=== PATIENT | female | born 1945 | race Caucasian/White ===

== ENCOUNTER → 2017-10-25 09:55 | Outpatient (CLI) | payer MEDICARE, OTHER, SELFPAY ==
[2017-10-25 11:41] LABS: Alanine Aminotransferase 26 IU/L (9-52); Albumin 4.7 g/dL (3.5-5.0); Albumin Globulin Ratio 1.2 (1.0-2.8); Alkaline Phosphatase 76 U/L (38-126); Aspartate Aminotransferase 26 IU/L (14-36); Bilirubin Total 0.6 mg/dL (0.2-1.3); Blood Urea Nitrogen 16 mg/dL (7-17); Calcium 10.2 mg/dL (8.4-10.2); Carbon Dioxide 33 mmol/L (22-32); Chloride 96 mmol/L (98-107); Cholesterol 205 mg/dL (140-199); Creatinine Urine Random 67.5 mg/dL; Estimated Glomerular Filt Rate > 60.0 mL/min (>60); Globulin 3.8 g/dL (1.7-4.1); Glucose 194 mg/dL (80-110); HDL Cholesterol 43 mg/dL (40-60); HEMOLYSIS < 15 (0-50); LDL Cholesterol Calculated 100 mg/dL (<100); Potassium 3.4 mmol/L (3.4-5.1); Sodium 139 mmol/L (137-145); Total Protein 8.5 g/dL (6.3-8.2); Triglycerides 308 mg/dL (35-150)
[2017-10-25 11:46] LABS: Microalbumi Creatinin Ratio Ur 63.7 ug/mg CR (<30); Microalbumin Urine Random 4.3 mg/dL (0-1.6)
[2017-10-25 11:48] LABS: Hemoglobin A1C% w Est Avg Glu 7.7 % (4.0-6.0)
== END ==
PROVIDERS: PCP Internal Medicine; Visit Provider Internal Medicine
DX: E11.65 Type 2 diabetes mellitus with hyperglycemia (principal); E11.69 Type 2 diabetes mellitus with other specified complication; E66.9 Obesity, unspecified; E78.5 Hyperlipidemia, unspecified; I10 Essential (primary) hypertension
CPT/HCPCS: 36415; 80053; 80061; 82043; 82570; 83036

== ENCOUNTER → 2018-07-19 06:48 | Outpatient (CLI) | payer MEDICARE, OTHER, SELFPAY ==
--- NOTE | 2018-07-19 | DI.ECHO.S_ITS ---
[place] [facility]---------+ [facility] +---------+ : : [address] : : : : [id number] : : : : Phone: [phone]+ Echocardiogram Report + + :Name: SHANIA RAMÍREZ Study Date: 07/19/2018 Height: 63 in : :[facility] Exam Location: [facility] Weight: 185 lb : : Gender: Female BSA: 1.9 m2 : :: 1945 Age: 73 yrs BP: 160/100 mmHg: :Reason For Study: Cardiomegaly : :Ordering Physician: Rosalie Howard Performed By: Anastasiia Page : + + Interpretation Summary The left ventricle is mildly dilated. Left ventricular systolic function is moderately reduced. The ejection fraction is estimated to be 35-40%. There is moderate to severe global hypokinesis of the left ventricle. There is a significant dyssynchronous contraction pattern, consistent with a conduction abnormality. The right ventricle is normal in size and function. The right ventricular systolic pressure is estimated to be at least 31 mmHg based on an estimated right atrial pressure of 15 mm Hg. The left atrium is mildly dilated. Right atrial size is normal. There is no significant valvular heart disease. The aortic root is normal size. Procedure: A two-dimensional transthoracic echocardiogram with color flow and Doppler was performed. The study quality was technically adequate. There is no prior echocardiogram noted for this patient. The patient was in atrial fibrillation with heart rates between 68-98 bpm during the exam. The patient had a bundle branch block rhythm during the exam. Left Ventricle: The left ventricle is mildly dilated. There is normal left ventricular wall thickness. There is no thrombus. Left ventricular systolic function is moderately reduced. The ejection fraction is estimated to be 35- 40%. There is moderate to severe global hypokinesis of the left ventricle. There is a significant dyssynchronous contraction pattern, consistent with a conduction abnormality. Diastolic function could not be accurately assessed due to atrial fibrillation. Right Ventricle: The right ventricle is normal in size and function. Atria: The left atrium is mildly dilated. Right atrial size is normal. There is no Doppler evidence for an interatrial shunt. Mitral Valve: The mitral valve leaflets appear mildly thickened, but open well. There is trace mitral regurgitation. Aortic Valve: The aortic valve is trileaflet. The aortic valve is slightly calcified. There is trace aortic regurgitation. Tricuspid Valve: The tricuspid valve is normal in structure and function. There is trace tricuspid regurgitation. The right ventricular systolic pressure is estimated to be at least 31 mmHg based on an estimated right atrial pressure of 15 mm Hg. Pulmonic Valve: The pulmonic valve is not well visualized. There is no pulmonic valvular regurgitation. There is no significant valvular heart disease. Great Vessels: The aortic root is normal size. The ascending aorta is normal in size. The pulmonary artery is not well visualized, but is probably normal size. The IVC is dilated (diameter is greater than 2.1 cm) and it collapses less than 50% with a sniff. This suggests a high right atrial pressure of 15 mm Hg. Pericardium/ Pleura There is no pericardial effusion. There is no pleural effusion. MMode/2D Measurements & Calculations LVIDd: 5.4 cm LVOT diam: 2.2 cm LVIDs: 4.1 cm Ao root diam: 3.2 cm FS: 23.4 % asc Aorta Diam: 3.2 cm EPSS: 1.2 cm IVSd: 0.86 cm LVPWd: 0.86 cm LV dominguez. diameter/BSA (cm/m^2): 2.9 LV sys. diameter/BSA (cm/m^2): 2.2 LA A2 area: 23.9 cm2 RA long axis: 4.0 cm LA A4 area: 19.7 cm2 RA area: 12.1 cm2 LA length (vol): 5.5 cm RA vol: 31.2 ml LA vol: 72.7 ml RA : 16.7 ml/m2 LA vol index: 38.8 ml/m2 IVC diam: 2.1 cm RVD1 (basal): 3.1 cm RVD2 (mid): 3.1 cm Doppler Measurements & Calculations Ao V2 max: 124.3 cm/sec LVOT Max Julio: 63.2 cm/sec Ao V2 mean: 87.0 cm/sec LV V1 max P.6 mmHg Ao max P.2 mmHg LV V1 VTI: 12.5 cm Ao mean P.3 mmHg ASHOK(I,D): 2.0 cm2 Ao V2 VTI: 24.4 cm ASHOK(V,D): 1.9 cm2 sev ratio: 0.51 ASHOK indexed to BSA (cm^2/m^2): 1.0 MV E max julio: 119.6 cm/sec TR max julio: 199.1 cm/sec MV P1/2t: 32.1 msec TR max P.9 mmHg MVA(VTI): 1.9 cm2 PA V2 max: 69.4 cm/sec PA V2 mean: 49.6 cm/sec PA mean P.1 mmHg PA Accel Time: 0.10 sec MV V2 mean: 63.9 cm/sec MV P1/2t max julio: 120.4 cm/sec MV mean P.3 mmHg MVA(P1/2t): 6.9 cm2 MV V2 VTI: 25.0 cm SV(LVOT): 47.8 ml Reading Physician:02:29 PM
== END ==
PROVIDERS: PCP Internal Medicine; Visit Provider Internal Medicine
DX: I51.7 Cardiomegaly (principal); R94.31 Abnormal electrocardiogram [ECG] [EKG]; I10 Essential (primary) hypertension; G51.0 Bell's palsy
CPT/HCPCS: 93306

== ENCOUNTER → 2018-08-26 07:42 | Outpatient (CLI) | payer MEDICARE, OTHER, SELFPAY ==
--- NOTE | 2018-08-26 | DI.NM.S_ITS ---
PROCEDURE: NM WING PERF SPECT R&S PHARM Rest and pharmacological stress myocardial perfusion SPECT with gated imaging and ejection fraction RADIOPHARMACEUTICAL: 25.7 mCi Tc-99m tetrafosmin IV at rest and 25.8 mCi Tc-99m tetrafosmin IV at peak effect of pharmacological stress. [id number] was performed. INDICATIONS: Left bundle-branch block, unspecified TECHNIQUE: Radiopharmaceutical was injected at peak stress test, and also at rest. SPECT images were obtained. SPECT myocardial perfusion images were displayed in short axis, horizontal long axis, and vertical long axis views. Gated images were reviewed using [employer] software. COMPARISON: None. CARDIAC STRESS: A pharmacologic stress test was performed under the supervision of an attending staff, using an infusion of lexiscan 0.4mg IV X1. Hemodynamic data: There is normal blood pressure and heart rate response to pharmacologic stress. Symptoms: The patient denied anginal chest pain. Aminophylline: none EKG: No diagnostic changes of ischemia; no ectopy. FINDINGS: Raw data: There is good myocardial uptake of radiotracer. No significant motion artifacts. Gqeb-mi-puflc ratio is 0.37 (normal is less than 0.38 for tetrafosmin tracer). Left ventricle function: Gated images demonstrate apical hypokinesis. No transient ischemic dilation; TID is 1.17 (normal less than 1.3). Left ventricle resting end diastolic volume is 107 mL. Left ventricle stress ejection fraction is 62%; normal range is above 45%. Myocardial perfusion: There is a moderately intense defect on rest images at the apex that improves with stress imaging, suggesting artifact with small underlying non-transmural infarction. No ischemia. 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 There is a moderately intense defect on rest images at the apex that improves with stress imaging, suggesting artifact with small underlying non-transmural infarction. No ischemia. 2) Normal left ventricular size and systolic function (post stress EF 62%). Apical hypokinesis present. 3) No ECG evidence of ischemia. 4) No angina during the study. 5) No prior nuclear stress test available for comparison. Dictated by: Marina Maldonado MD on 08/29/2018 at 12:51 Approved by: Marina Maldonado MD on 08/29/2018 at 12:56
--- NOTE | 2018-08-26 08:44 | PM.TREADMILL ---
Cardiac Stress Test Report Referral & Results Date Patient Seen: 08/26/18 Time Patient Seen: 08:30 Requesting provider: Rosalie Howard Indication: LBBB Rest ECG: LBBB Procedure Note: After both written and verbal informed consent the patient had an IV started by the diagnostic imaging RN, and then was hooked up to the treadmill monitoring system. The Lexiscan material, and then the Cardiolite tracer, were administered sequentially. An additional 3 min was spent monitoring the patient while supine on the gurney. The patient had a normal response to all infused materials. Impression: Successful Pallavi protocol. Will await perfusion imaging. Please note: Actual ECG tracings can be found in the PACS system.
== END ==
PROVIDERS: PCP Internal Medicine; Visit Provider Internal Medicine
DX: I44.7 Left bundle-branch block, unspecified (principal)
CPT/HCPCS: 78452; 93016; 93017; 93018; A9502; J2785

== ENCOUNTER 2023-10-09 12:41 | Emergency (ER) | payer MEDICARE, OTHER, SELFPAY ==
[2023-10-09 12:44] VITALS: BP 168/79; PULSE 104; RESP 18; TEMP 36.6; O2SAT 97; BMI 32.0
--- NOTE | 2023-10-09 12:53 | ED.FALL ---
HPI - Fall <Wei Velarde PA-C - Last Filed: 10/09/23 15:18> General Chief Complaint: Fall Stated Complaint: GLF, Head Injury Time Seen by Provider: 10/09/23 12:53 Source: patient Mode of arrival: Ambulatory History of Present Illness HPI Narrative: This is a 78-year-old female presents emergency department due to a mechanical ground level fall where she tripped over a curb and landed on her left knee, left elbow, and left side of her face. Tetanus is not up-to-date. Patient was denies loss of consciousness. She was not on blood thinners. She was not reporting any significant pain in her knee or elbow. She was able to ambulate. No vision changes, slurred speech, facial drooping, weakness, or any other concerning signs or symptoms. Related Data Home Medications Medication Instructions Recorded Confirmed ACETAMINOPHEN/DIPHENHYDRAMINE 1 cap PO HS PRN ##0 01/14/11 (Tylenol Pm Ex-Strength Gelcap) ASPIRIN (Aspirin EC) 81 mg PO Q DAY ##0 01/14/11 CA PANTOTHENATE/FOLIC ACID/VIT 1 tab PO Q DAY ##0 01/14/11 (MULTIVITAMIN) CALCIUM/CHOLECALCIFEROL/SODI 1 tab PO Q DAY ##0 01/14/11 (#CALCIUM WITH VITAMIN D 600 MG-400 IU-5 MG) ibuprofen 200 mg tablet 200 mg PO PRN PRN ##0 06/08/17 Previous Rx's Medication Instructions Recorded Glucose: Home Monitor ea SEE INSTRUCTIONS ##1 06/09/17 Glucose: Test Strips str SEE INSTRUCTIONS ##100 06/28/17 Lancets ea SEE INSTRUCTIONS ##100 06/28/17 hydrochlorothiazide 25 mg tablet 25 mg PO QDAY #90 tabs 10/25/17 lisinopril 5 mg tablet 5 mg PO DAILY #90 tabs 10/25/17 metformin 500 mg tablet 500 mg PO .TIDCC #270 tabs 10/25/17 (Glucophage) atorvastatin 40 mg tablet 40 mg PO DAILY #90 tabs 11/01/17 Allergies Allergy/AdvReac Type Severity Reaction Status Date / Time Penicillins [PENICILLINS] Allergy Mild LIP AND Unverified 10/25/17 09:21 TONGUE TINGLE Review of Systems <Wei Velarde PA-C - Last Filed: 10/09/23 15:18> Review of Systems Narrative: GENERAL: Denies chills, fatigue, malaise, fever, sweats. HEENT: Reports left forehead pain Denies sinus pain, ear pain, sore throat, difficulty swallowing, dizziness. RESPIRATORY: Denies dyspnea, cough, wheezing, hemoptysis, sputum. CARDIOVASCULAR: Denies chest pain, palpitations, orthopnea, edema, GASTROINTESTINAL: Denies nausea, vomiting, abdominal pain, diarrhea, constipation, melena. : Denies dysuria, frequency, incontinence, hematuria, urinary retention. MUSCULOSKELETAL: Reports mild left knee and left elbow pain denies weakness, joint pain, or bony pain SKIN: Denies rash, skin lesions, or other NEUROLOGIC: Denies weakness, headache, numbness, change in speech, confusion, seizures, incoordination. PSYCHIATRIC: No concerning psychosocial issues. 12 point review of systems is negative except for those stated above Patient History <Wei Velarde PA-C - Last Filed: 10/09/23 15:18> Medical History (Updated 10/09/23 @ 15:18 by Wei Velarde PA-C) Vision disorder Fibromyalgia (~1989) Mumps (~1949) MRSA (methicillin resistant Staphylococcus aureus) (~1999) Chicken pox (~1949) Fibroids (~1979) Surgical History (Updated 10/24/17 @ 18:11 by Aliza Coker) Anesthesia Status post breast biopsy (~1989) Status post hysterectomy (~1979) Status post tubal ligation (~1969) Family History (Updated 11/19/14 @ 00:00 by Conversion Provider) Father Cancer Stroke Mother Stroke Grandmother Diabetes mellitus Social History Smoking Status: Never smoker Smoking Status: Never smoker Substance Use Type: does not use Exam <Wei Velarde PA-C - Last Filed: 10/09/23 15:18> Narrative Exam Narrative: GENERAL: Well-developed patient, in mild distress. HEAD: Atraumatic. Normocephalic. EYES: Pupils equal round and reactive. Extraocular motions intact. No scleral icterus. No injection or drainage. ENT: Nose without bleeding, purulent drainage. Throat without erythema, tonsillar hypertrophy or exudate. Airway patent. NECK: Trachea midline. Non tender EXTREMITIES: No edema or joint tenderness. No significant tenderness to palpation to the left knee or left elbow. NEURO: AOx3. Cranial nerves 2-12 intact SKIN: No rash or erythema of visible areas. Developing hematoma to the left forehead area. Very superficial abrasions to the left forehead as well as left elbow. Initial Vital Signs Initial Vital Signs: Vital Signs Temperature 97.8 F 10/09/23 12:44 Pulse Rate 104 H 10/09/23 12:44 Respiratory Rate 18 10/09/23 12:44 Blood Pressure 168/79 H 10/09/23 12:44 Pulse Oximetry 97 10/09/23 12:44 Oxygen Delivery Method Room Air 10/09/23 12:44 <Sarah Tejada DO - Last Filed: 10/11/23 07:17> Initial Vital Signs Initial Vital Signs: Vital Signs Temperature 97.8 F 10/09/23 12:44 Pulse Rate 104 H 10/09/23 12:44 Respiratory Rate 18 10/09/23 12:44 Blood Pressure 168/79 H 10/09/23 12:44 Pulse Oximetry 97 10/09/23 12:44 Oxygen Delivery Method Room Air 10/09/23 12:44 Course <Wei Velarde PA-C - Last Filed: 10/09/23 15:18> Orders Ordered: Discontinued Medications Diphtheria/Tetanus/Acell Pertussis (Tet,Diph,Pertuss(Acell),Vac/Pf 0.5 Ml Syringe) 0.5 ml IM .ONCE ONE Stop: 10/09/23 13:17 Last Admin: 10/09/23 13:26 Dose: 0.5 ml Documented By: RB Vital Signs Vital signs: Vital Signs - 8 hr 10/09/23 12:44 Temperature 97.8 F Pulse Rate 104 H Respiratory Rate 18 Blood Pressure 168/79 H Pulse Oximetry 97 Oxygen Delivery Method Room Air <Sarah Tejada DO - Last Filed: 10/11/23 07:17> Orders Ordered: Discontinued Medications Diphtheria/Tetanus/Acell Pertussis (Tet,Diph,Pertuss(Acell),Vac/Pf 0.5 Ml Syringe) 0.5 ml IM .ONCE ONE Stop: 10/09/23 13:17 Last Admin: 10/09/23 13:26 Dose: 0.5 ml Documented By: RB Vital Signs Vital signs: Vital Signs - 8 hr 10/09/23 12:44 Temperature 97.8 F Pulse Rate 104 H Respiratory Rate 18 Blood Pressure 168/79 H Pulse Oximetry 97 Oxygen Delivery Method Room Air MDM - Fall <Wei Velarde PA-C - Last Filed: 10/09/23 15:18> Imaging Data CT scan - head: Radiologist's Impression: PROCEDURE: CT HEAD/BRAIN WO CON INDICATIONS: Head injury TECHNIQUE: Noncontrast 4.5 mm thick angled axial sections acquired from the foramen magnum to the vertex, with coronal and sagittal reformats. For radiation dose reduction, the following was used: automated exposure control, adjustment of mA and/or kV according to patient size. COMPARISON: None. FINDINGS: Image quality: Diagnostic. CSF spaces: Basal cisterns are patent. No extra-axial fluid collections. The ventricles are symmetric in size and shape. Brain: No intracranial bleeds or masses. There is cerebral volume loss for age, with resultant ventricular and sulcal prominence. There are periventricular and deep white matter chronic small vessel ischemic changes. There is intracranial internal carotid artery atherosclerosis. Skull and face: Subcutaneous hematoma over the left inferior frontal/superior orbital region. No underlying fracture. Calvarium and visualized facial bones appear intact, without suspicious lesions. Sinuses: Visualized sinuses and mastoids are clear. IMPRESSION: No acute intracranial pathology. Left frontal/orbital hematoma. No underlying fracture. Dictated by: Carlos Cardenas M.D. on 10/09/2023 at 14:51 Approved by: Carlos Cardenas M.D. on 10/09/2023 at 14:52 CT - cervical spine: Radiologist's Impression: [place] [address] CT Scan Report Signed Patient: Chriss Lozoya MR#: [id number] : 1945 Acct:[id number] Age/Sex: 78 / F Date of Service: 10/09/23 Loc: ED Accession Number: [id number] Procedure: CT cervical spine wo con Ordering Provider: Wei Velarde PA-C PROCEDURE: CT CERVICAL SPINE WO CON INDICATIONS: Neck pain after fall TECHNIQUE: Noncontrast 3 mm thick sections acquired from the skull base to the T4 level. Sagittal and coronal reformats were then constructed. For radiation dose reduction, the following was used: automated exposure control, adjustment of mA and/or kV according to patient size. COMPARISON: None. FINDINGS: Image quality: Excellent. Bones: No fractures or dislocations. Multilevel degenerative changes. Decreased osseous mineralization. Visualized superior ribs are intact. Soft tissues: Prevertebral soft tissues are normal in thickness. No paravertebral hematomas. No apical pneumothoraces. Left thyroid lobe nodule measuring approximately 2 centimeters. IMPRESSION: No displaced fracture or traumatic subluxation. Degenerative changes of the spine. Left thyroid lobe nodule measuring 2 centimeters, nonurgent dedicated thyroid ultrasound could be obtained for further evaluation. Dictated by: Carlos Cardenas M.D. on 10/09/2023 at 14:54 Approved by: Carlos Cardenas M.D. on 10/09/2023 at 14:57 =========\ CT face : Radiologist's Impression: [place] [address] CT Scan Report Signed Patient: Chriss Lozoya MR#: [id number] : 1945 Acct:[id number] Age/Sex: 78 / F Date of Service: 10/09/23 Loc: ED Accession Number: [id number] Procedure: CT cervical spine wo con Ordering Provider: Wei Velarde PA-C PROCEDURE: CT CERVICAL SPINE WO CON INDICATIONS: Neck pain after fall TECHNIQUE: Noncontrast 3 mm thick sections acquired from the skull base to the T4 level. Sagittal and coronal reformats were then constructed. For radiation dose reduction, the following was used: automated exposure control, adjustment of mA and/or kV according to patient size. COMPARISON: None. FINDINGS: Image quality: Excellent. Bones: No fractures or dislocations. Multilevel degenerative changes. Decreased osseous mineralization. Visualized superior ribs are intact. Soft tissues: Prevertebral soft tissues are normal in thickness. No paravertebral hematomas. No apical pneumothoraces. Left thyroid lobe nodule measuring approximately 2 centimeters. IMPRESSION: No displaced fracture or traumatic subluxation. Degenerative changes of the spine. Left thyroid lobe nodule measuring 2 centimeters, nonurgent dedicated thyroid ultrasound could be obtained for further evaluation. Dictated by: Carlos Cardenas M.D. on 10/09/2023 at 14:54 Approved by: Carlos Cardenas M.D. on 10/09/2023 at 14:57 MDM Narrative Medical decision making narrative: ED course: This is a 70-year-old female presents emergency department due to a mechanical ground level fall. Tetanus was updated. Ray low amount of tenderness affecting her extremities and shared decision-making utilized and no x-rays ordered. Shared decision-making was utilized and a CT face, head, and neck were ordered which were unremarkable for any acute findings. Recommended supportive care. CC: Head pain Complicating co-morbidities: History of fibromyalgia Data collected from: Previous notes Medical records reviewed: Patient was not been to this emergency department the past. History of type 2 diabetes, hypertension, hyperlipidemia. History of fibromyalgia, chronic vision disorder very Differential considered, but not limited to: Fracture, intracranial bleed, soft tissue injury Exam documented above, pertinent findings include: Reassuring neuro exam Lab Test results independently reviewed as above. Pertinent findings: None obtained Imaging studies independently reviewed: CT scan unremarkable for acute findings Scores Used: None MIPS Elements: None Consultations: None Treatments: None Re-evaluations: None Discussion: Discussed plan with the patient was comfortable with the plan Diagnosis: Forehead hematoma Disposition: see below, along with detailed discharge instructions that have been reviewed with patient as well as indications for ED re-evaluation and additional outpatient follow up Discharge Plan Departure Patient Disposition: Home Clinical Impression: Traumatic hematoma of forehead Activity Restrictions/Additional Instructions: Thank you for coming to the [facility] Emergency Department today. The CT scan showed no fractures in your face, neck, and no evidence of any kind of ?brain bleed?. You may use ice to help your forehead. Please return to the emergency department if you develop any blurry vision, slurred speech, weakness, facial droop, or any other concerning signs or symptoms. I hope you feel better soon. Please follow up with your primary care provider within a week if your symptoms continue. If you do not have a primary care provider please contact the [facility] Resource line at [phone]. They will ask some questions about your medical history and help you get set up with a provider in the community. Prescriptions: No Action ACETAMINOPHEN/DIPHENHYDRAMINE (Tylenol Pm Ex-Strength Gelcap) 1 cap PO HS PRNQty: 0 ASPIRIN (Aspirin EC) 81 mg PO Q DAY Qty: 0 CALCIUM/CHOLECALCIFEROL/SODI (#CALCIUM WITH VITAMIN D 600 MG-400 IU-5 MG) 1 tab PO Q DAY Qty: 0 CA PANTOTHENATE/FOLIC ACID/VIT (MULTIVITAMIN) 1 tab PO Q DAY Qty: 0 ibuprofen 200 MG tablet 200 mg PO PRN PRNQty: 0 Glucose: Home Monitor SEE INSTRUCTIONS Qty: 1 0RF Glucose: Test Strips SEE INSTRUCTIONS Qty: 100 3RF Lancets SEE INSTRUCTIONS Qty: 100 3RF metformin [Glucophage] 500 mg tablet 500 mg PO .TIDCC Qty: 270 1RF hydrochlorothiazide 25 mg tablet 25 mg PO QDAY Qty: 90 1RF atorvastatin 40 mg tablet 40 mg PO DAILY Qty: 90 3RF lisinopril 5 mg tablet 5 mg PO DAILY Qty: 90 1RF Referrals: Rosalie Howard ARNP [Primary Care Provider] - Stand Alone Forms: Patient Portal/API ED Sign-out <Sarah Tejada DO - Last Filed: 10/11/23 07:17> Cosign ED Attending Satish Attestation: I was immediately available in the department for consultation.
--- NOTE | 2023-10-09 13:14 | DI.CT.S_ITS ---
PROCEDURE: CT CERVICAL SPINE WO CON INDICATIONS: Neck pain after fall TECHNIQUE: Noncontrast 3 mm thick sections acquired from the skull base to the T4 level. Sagittal and coronal reformats were then constructed. For radiation dose reduction, the following was used: automated exposure control, adjustment of mA and/or kV according to patient size. COMPARISON: None. FINDINGS: Image quality: Excellent. Bones: No fractures or dislocations. Multilevel degenerative changes. Decreased osseous mineralization. Visualized superior ribs are intact. Soft tissues: Prevertebral soft tissues are normal in thickness. No paravertebral hematomas. No apical pneumothoraces. Left thyroid lobe nodule measuring approximately 2 centimeters. IMPRESSION: No displaced fracture or traumatic subluxation. Degenerative changes of the spine. Left thyroid lobe nodule measuring 2 centimeters, nonurgent dedicated thyroid ultrasound could be obtained for further evaluation. Dictated by: Carlos Cardenas M.D. on 10/09/2023 at 14:54 Approved by: Carlos Cardenas M.D. on 10/09/2023 at 14:57
--- NOTE | 2023-10-09 13:14 | DI.CT.S_ITS ---
PROCEDURE: CT HEAD/BRAIN WO CON INDICATIONS: Head injury TECHNIQUE: Noncontrast 4.5 mm thick angled axial sections acquired from the foramen magnum to the vertex, with coronal and sagittal reformats. For radiation dose reduction, the following was used: automated exposure control, adjustment of mA and/or kV according to patient size. COMPARISON: None. FINDINGS: Image quality: Diagnostic. CSF spaces: Basal cisterns are patent. No extra-axial fluid collections. The ventricles are symmetric in size and shape. Brain: No intracranial bleeds or masses. There is cerebral volume loss for age, with resultant ventricular and sulcal prominence. There are periventricular and deep white matter chronic small vessel ischemic changes. There is intracranial internal carotid artery atherosclerosis. Skull and face: Subcutaneous hematoma over the left inferior frontal/superior orbital region. No underlying fracture. Calvarium and visualized facial bones appear intact, without suspicious lesions. Sinuses: Visualized sinuses and mastoids are clear. IMPRESSION: No acute intracranial pathology. Left frontal/orbital hematoma. No underlying fracture. Dictated by: Carlos Cardenas M.D. on 10/09/2023 at 14:51 Approved by: Carlos Cardenas M.D. on 10/09/2023 at 14:52
--- NOTE | 2023-10-09 13:14 | DI.CT.S_ITS ---
PROCEDURE: CT FACIAL BONES WO CON INDICATIONS: L forehead injury TECHNIQUE: Noncontrast 2.5 mm thick axial images acquired from the mandible through the frontal sinuses, with coronal and sagittal reformatting. For radiation dose reduction, the following was used: automated exposure control, adjustment of mA and/or kV according to patient size. COMPARISON: None. FINDINGS: Image quality: Excellent. Bones and teeth: Orbital reyes are intact. Sinus reyes show no fracture or deformity. Nasal bones and septum are intact. Visualized portions of the mandible demonstrate no fractures or subluxation. Zygomatic arches are intact. Pterygoid plates are intact. Visualized portions of the skull base and auditory canals are intact. Sinuses: Paranasal sinuses are aerated, without fluid levels, mucosal thickening, or mucoceles. Mastoid air cells are aerated. Soft tissues: Left superior orbital hematoma.. No enlarged lymph nodes. No soft tissue lacerations or debris. Vascular: Visualized vascular structures appear normal in the absence of contrast. Bony vascular foramina and canals are intact. IMPRESSION: No acute facial fractures. Left superior orbital hematoma. Dictated by: Carlos Cardenas M.D. on 10/09/2023 at 14:53 Approved by: Carlos Cardenas M.D. on 10/09/2023 at 14:54
[2023-10-09] MEDS: TET,DIPH,PERTUSS(ACELL),VAC/PF 0.5 ML SYRINGE IM (13:26)
[2023-10-09 15:30] VITALS: BP 139/66; PULSE 86; RESP 18; TEMP 36.6; O2SAT 98
== END 2023-10-09 15:31 | disposition home or self-care (01) ==
PROVIDERS: Emergency Provider Physician Assistant Medical; PCP Internal Medicine
DX: S00.83XA Contusion of other part of head, initial encounter (principal); M54.2 Cervicalgia; W01.0XXA Fall on same level from slipping, tripping and stumbling without subsequent striking against object, initial encounter; Z23 Encounter for immunization
CPT/HCPCS: 70450; 70486; 72125; 90471; 99283; 99284; 90715